=== PATIENT | female | born 1965 | race Caucasian/White ===

== ENCOUNTER → 2016-07-16 19:46 | Outpatient (CLI) | payer MEDICAID ==
[2014-01-11 15:05] VITALS: BMI 31.6
[~2016-07-16 19:46] MED LIST: CELEXA20 MG PO; IBUPROFEN600 MG PO; PERCOCET 5-3251 TAB PO; SYNTHROID150 MCG PO; ZESTORETIC 20/21 TAB PO
== END | disposition home or self-care (01) ==
LOC: D.SLEEP 19:46
DX: G47.33 Obstructive sleep apnea (adult) (pediatric) (principal)

== ENCOUNTER → 2016-07-30 19:28 | Outpatient (CLI) | payer MEDICAID ==
[2014-01-11 15:05] VITALS: BMI 31.6
== END | disposition home or self-care (01) ==
LOC: D.SLEEP 07-19 20:00
DX: G47.33 Obstructive sleep apnea (adult) (pediatric) (principal)